=== PATIENT | male | born 1985 | race Hispanic/Latino ===

== ENCOUNTER 2024-02-12 17:20 | Emergency (ER) | payer SELFPAY ==
[2024-02-12 17:32] VITALS: BP 139/80
[2024-02-12 17:56] LABS: Urine Albumin Negative (Neg - Trace); Urine Bilirubin Negative (Negative); Urine Character Clear (Clear); Urine Color Yellow; Urine Glucose Negative (Negative); Urine Ketone Negative (Negative); Urine Leukocyte 1+ (Negative); Urine Nitrite Negative (Negative); Urine Occult Blood Negative (Negative); Urine Specific Gravity 1.005 (<1.030); Urine Urobilinogen Negative (Neg - 1+)
[2024-02-12 18:06] LABS: ALT (SGPT) 46 U/L (0-50); AST (SGOT) 51 U/L (17-59); Albumin 4.9 g/dl (3.5-5.0); Alkaline Phosphatase 133 U/L (38-126); Blood Urea Nitrogen 15 mg/dl (9-20); Calcium 9.4 mg/dl (8.4-10.2); Carbon Dioxide 35 mmol/L (22-30); Chloride 102 mmol/L (98-107); Glucose 89 mg/dl (70-99); Potassium 5.4 mmol/L (3.5-5.1); Sodium 144 mmol/L (135-145); Total Bilirubin 1.3 mg/dl (0.2-1.3); Total Protein 7.5 g/dl (6.3-8.2); eGFR > 60.00
[2024-02-12 18:07] LABS: Urine Bacteria Few (Negative); Urine Red Blood Cell 0-2 /HPF (0-2)
[2024-02-12 18:21] LABS: % Eosinophils 0.7 % (0-6); % Immature Granulocytes 0.4 % (0-0.5); % Monocytes 2.4 % (1.7-9.3); % Neutrophils 59.5 % (42.2-75.2); Absolute Lymphocytes 1.7 10^3/uL (1.2-3.4); Absolute Monocytes 0.1 10^3/uL (0.1-0.6); Absolute Neutrophils 2.7 10^3/uL (1.4-6.5); Hematocrit 26.1 % (39.0-52.0); Hemoglobin 9.7 g/dL (13.0-18.0); Mean Corp Hgb Conc. 37.2 g/dL (33.0-37.0); Mean Corpuscular Hgb 42.4 pg (27.0-31.0); Mean Platelet Volume 12.5 fL (7.4-10.4); Nucleated Red Blood Cells % 0 % (-); Platelet Count 132 10^3/uL (130-400); Red Blood Cell Count 2.29 10^6/uL (4.70-6.10); Red Cell Dist. Width 16.2 % (11.5-14.5); White Blood Cell Count 4.5 10^3/uL (4.8-10.8)
--- NOTE | 2024-02-12 20:23 | ED.GENMED ---
History of Present Illness
General
Chief Complaint: Flank Pain
Time Seen by Provider: 02/12/24 20:23
History of Present Illness
History of Present Illness:
HPI: Patient presents with 2 weeks of low back pain. 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 The pain is primarily on the left side. This is associated with nausea. He also has some discomfort in the mid axillary line of the abdomen
on the left side.
EXAM:
GENERAL: Well appearing in no distress
HEENT: Moist oral mucosa
ABDOMEN: Soft with no peritoneal signs, mild abdominal tenderness along the anterior aspect of the left mid axillary line
NEUROLOGIC: Excellent strength all extremities, no coordination deficits
PSYCHIATRIC: Appropriate mental status, normal insight and judgement
EXTREMITIES: Nontender, no edema, moves all extremities equally
SKIN: No rash, no lesions, appears slightly pale
TIME OF INITIAL ENCOUNTER: 8:30 PM
NUMBER AND COMPLEXITY OF PROBLEMS ADDRESSED AT THE ENCOUNTER
� Chronic conditions affecting care: Denies any significant past medical history
� Acute Exacerbation and/or Progression of Chronic Illness: This is an acute problem
� Differential Diagnosis includes: UTI, pyelonephritis, ureteral stone, musculoskeletal back pain
AMOUNT AND/OR COMPLEXITY OF DATA TO BE REVIEWED AND ANALYZED
� I performed an independent evaluation of and my interpretation is:
EKG:
CT: CT imaging personally reviewed and I agree with radiologist interpretation that there is no acute abnormality
X-rays:
Laboratory Studies: White count 4.5, hemoglobin normal, potassium 5.4, creatinine normal, urinalysis shows 1+ leukocyte esterase and 6-10 white cells per high-power field.
Other:
� Review of other/old records: No old records available for review
� Clinical information was obtained by an independent historian: None needed
� Prescriptions/Medications Considered but not given:
� Further testing considered but not performed:
RISK OF COMPLICATIONS AND/OR MORBIDITY OR MORTALITY OF PATIENT MANAGEMENT
� Social determinants of health affecting care: Urdu-speaking
� Discussion with other providers:
� Escalation of care including admission/observation vs risk of discharge considered: The patient does have some left-sided tenderness/pain will obtain CT imaging. He states that he has never been told that he was anemic in the
past. Due to the anemia, I did perform a digital rectal examination which showed heme-negative brown stool. On reassessment, at 10:45 PM, the patient appears comfortable and reports improvement after IM Toradol and Zofran were given. I did send a
prescription for Zofran to his pharmacy.
Phy Exam
Physical Exam
Physical Exam:
See HPI
Course
Orders/Labs/Results
Orders:
Orders
02/12/24 17:40
Complete Blood Count/With Diff Urgent
Comprehensive Metabolic Panel Urgent
02/12/24 17:44
Urinalysis Reflex To Culture Urgent
Date Specimen was Collected: 02/12/24
Time Specimen was Collected: 17:35
Urine Microscopic Reflex Cult Urgent
Urine Culture Urgent
BLAINE Source: U
Specimen Description:
Date Specimen was Collected: 02/12/24
Time Specimen was Collected: 17:35
02/12/24 20:38
CT Abd/pel Without Iv Or Oral Urgent
Comment:
Reason For Exam: L flank pain
Ketorolac [Toradol] 30 mg IM NOW STA
Ondansetron Orally Disint [Zofran Odt (Orally Disintegrating)] 4 mg PO NOW STA
02/12/24 20:53
Ketorolac [Toradol] 30 mg .ROUTE .STK-MED ONE
Ondansetron Orally Disint [Zofran Odt (Orally Disintegrating)] 4 mg .ROUTE .STK-MED ONE
Abnormal Lab Results
02/12/24 02/12/24
17:40 17:44
WBC 4.5 L 10^3/uL
(4.8-10.8)
RBC 2.29 L 10^6/uL
(4.70-6.10)
Hgb 9.7 L g/dL
(13.0-18.0)
Hct 26.1 L %
(39.0-52.0)
MCV 114.0 H fL
(80.0-94.0)
MCH 42.4 H pg
(27.0-31.0)
MCHC 37.2 H g/dL
(33.0-37.0)
RDW 16.2 H %
(11.5-14.5)
MPV 12.5 H fL
(7.4-10.4)
Potassium 5.4 H mmol/L
(3.5-5.1)
Carbon Dioxide 35 H mmol/L
(22-30)
Alkaline Phosphatase 133 H U/L
(38-126)
Leukocyte Esterase Rfl 1+ A
(Negative)
Urine Bacteria (Reflex) Few A
(Negative)
02/12/24 17:40
02/12/24 17:40
Vital Signs
Initial and Last Documented VS:
Initial Vital Signs
Temp Pulse Resp BP Pulse Ox
98.2 F 98 18 139/80 100
02/12/24 17:32 02/12/24 17:32 02/12/24 17:32 02/12/24 17:32 02/12/24 17:32
Last Documented Vital Signs
Temp Pulse Resp BP Pulse Ox
98.2 F 80 18 130/80 10
02/12/24 17:32 02/12/24 22:43 02/12/24 17:32 02/12/24 22:43 02/12/24 22:43
*Critical Care Note
Total Time (30-74mins, 75-104mins- exclusive of procedures): Not Applicable
ED Attending Note
-
Portions of this chart may have been created with voice recognition software.� Occasional wrong word or��sound alike� substitutions may have occurred due to the inherent limitations of voice recognition software.
Discharge Plan
Departure
Patient Disposition: Home (Routine Discharge)
Date of Disposition: 02/12/24
Time of Disposition: 22:37
Patient with high blood pressure during this ER visit?: Yes
Discharge Problem:
Acute left flank pain
Instructions: Flank Pain (DC), BLOOD PRESSURE
Prescriptions:
New
ondansetron HCl 4 mg tablet
4 mg PO Q8H PRN (Reason: nausea and vomiting) Qty: 10 0RF
Referrals:
[facility] [Outside] - Follow up in 5-7 days
UNKNOWN - PT DOES,NOT KNOW [Family Provider] -
Stand Alone Forms: Return to Work
Activity Restrictions/Additional Instructions:
The cause of your symptoms is unclear. Your hemoglobin level is somewhat low at 9.7. We did a rectal examination which shows no blood. The CAT scan did not show any abnormality. You could try [id number] Tylenol and/or Motrin for pain. The
urinalysis did not show any clear signs of infection. I have given you the contact information for local clinic.
Interventions
Interventions:
*Risk Screen - Suicide Last Done: 02/12/24 17:32
*General Assessment Last Done: 02/12/24 17:32
*Neglect/Abuse Screening Last Done: 02/12/24 17:32
ED- Fall Risk Assessment Last Done: 02/12/24 22:42
*ED COVID-19 Vaccine History Last Done: 02/12/24 17:32
KB-Oajmtt-Jmtqvxrhsw Assessment Last Done: 02/12/24 22:42
Discharge Date and Time
Print Language: SLOVENIAN
[2024-02-12] MEDS: ZOFRAN ODT (ORALLY DISINTEGRATING) 4 MG PO (21:07)
[2024-02-12] MEDS: TORADOL 30 MG IM (21:07)
[2024-02-12 22:43] VITALS: BP 130/80
== END 2024-02-12 22:59 | disposition home or self-care (01) ==
LOC: EMR 17:20
PROVIDERS: Emergency Medicine; EMERGENCY PHYSICIAN Emergency Medicine
DX: R10.9 Unspecified abdominal pain (principal)
CPT/HCPCS: 99284; 74176; 80053; 81003; 81015; 85025; 87077; 87086; 87147